=== PATIENT | female | born 1955 | race Caucasian/White ===

== ENCOUNTER 2022-03-29 18:40 | Inpatient (IN) | payer SELFPAY ==
[~2022-03-29 18:40] MED LIST: Iopamidol 300 61% 100 ML VIAL FS ONE
[2022-03-29] MEDS ORDERED: Lidocaine 1% MPF 2 ML VIAL ONE (18:46)
[2022-03-29] MEDS ORDERED: Nitroglycerin 50 MG/250 ML BOT 250 ML ONE (18:46)
[2022-03-29] MEDS ORDERED: Heparin 10,000 UNITS/ 10 ML VIAL ONE (18:46)
[2022-03-29] MEDS ORDERED: Lidocaine 1% (PF) 30 ML VIAL ONE (18:46)
[2022-03-29] MEDS ORDERED: Adenosine 6 MG/2 ML VIAL ONE (18:46)
[2022-03-29] MEDS ORDERED: Sodium Chloride 0.9% 1,000 ML ONE (18:47)
[2022-03-29] MEDS ORDERED: Verapamil 5 MG/2 ML VIAL ONE (18:47)
[2022-03-29] MEDS ORDERED: Ondansetron PF 4 MG/2 ML Vial ONE (19:09)
[2022-03-29] MEDS ORDERED: Fentanyl 100 MCG/2 ML VIAL ONE (19:13)
[2022-03-29] MEDS ORDERED: Midazolam HCl 2 mg/2 ml Vial ONE (19:13)
[2022-03-29] MEDS ORDERED: Bivalirudin 250 MG VIAL ONE (19:19)
[2022-03-29] MEDS ORDERED: TICAGRELOR 90 MG TABLET ONE (19:20)
[2022-03-29] MEDS ORDERED: Sodium Chloride 0.9% 50 ML ONE (19:22)
[2022-03-29] MEDS ORDERED: Atropine Sulfate 0.4 mg/1 ml Vial ONE (19:31)
[2022-03-29] MEDS ORDERED: Phenylephrine 40 MG/NS 250 ML 0 ML ONE (19:42)
[2022-03-29] MEDS ORDERED: Acetaminophen/Codeine 30-300mg Tablet PO PRN (20:09)
[2022-03-29] MEDS: Sodium Chloride 0.9% 1,000 ML IV SCH (20:45)
[2022-03-29 21:08] VITALS: BMI 33.1
[2022-03-29] MEDS: TICAGRELOR 90 MG TABLET PO SCH (21:57)
[2022-03-29] MEDS: Metoprolol Tartrate 25 MG TAB PO SCH (21:57)
[2022-03-29] MEDS: Atorvastatin Calcium 40 MG TAB PO SCH (21:57)
[2022-03-29 23:54] LABS: SARS-CoV-2 NAA Rapid Test Not Detected (NotDetected)
[2022-03-30] MEDS: Sodium Chloride 0.9% 1,000 ML IV SCH (02:58)
[2022-03-30 04:03] LABS: ALT (SGPT) 49 U/L (8-55); AST (SGOT) 107 U/L (5-34); Albumin 3.9 g/dL (3.4-4.8); Alkaline Phosphatase 85 U/L (40-110); Anion Gap 16 mmol/L (10-20); BUN (Urea Nitrogen) 9 mg/dL (9.8-20.1); Bilirubin, Total 0.6 mg/dL (0.2-1.2); Calc. Creatinine Clearance 87 mL/min (70-130); Calcium 9.2 mg/dL (7.8-10.44); Carbon Dioxide 20 mmol/L (23-31); Cardiac Risk 3.9 (Less than 4.5); Chloride 108 mmol/L (98-107); Cholesterol 201 mg/dl (< 200 Desired); Estimated GFR 86; Globulin 2.8 g/dL (2.4-3.5); Glucose 109 mg/dL (80-115); HDL Cholesterol 51 mg/dL (>60 Neg Risk); LDL Cholesterol, Calculated 126 mg/dL; Potassium 4.4 mmol/L (3.5-5.1); Protein, Total 6.7 g/dL (5.8-8.1); Sodium 140 mmol/L (136-145); Triglycerides 122 mg/dL (Less than 150)
[2022-03-30 04:18] LABS: #Monocytes 0.5 10x3/uL (0.0-1.1); #Neutrophils 6.9 10x3/uL (1.5-8.4); %Basophils 0.2 % (0.0-2.0); %Lymphocytes 16.5 % (18.0-47.0); %Monocytes 5.4 % (0.0-10.0); %Neutrophils 77.7 % (40.0-75.0); Hemoglobin 12.4 g/dL (12.0-15.5); Mean Corpuscular HGB CONC 34.5 g/dL (32.0-36.0); Mean Corpuscular Hemoglobin 31.2 pg (27.0-33.0); Mean Corpuscular Volume 90.2 fl (81.6-98.3); Mean Platelet Volume 11.8 fl (7.4-10.4); Platelet Count 162 10x3/uL (150-450); RBC Distribution Width 12.8 % (11.5-14.5); Red Blood Cell (RBC) Count 3.98 10x6/uL (3.90-5.03); White Blood Cell (WBC) Count 8.9 10x3/uL (3.5-10.5)
[2022-03-30] MEDS: Aspirin Chewable 81 MG TAB PO SCH (08:16)
[2022-03-30] MEDS: TICAGRELOR 90 MG TABLET PO SCH ×2 (08:17→21:23)
[2022-03-30] MEDS: Metoprolol Tartrate 25 MG TAB PO SCH ×2 (08:17→21:23)
[2022-03-30] MEDS: Lisinopril 2.5 MG TAB PO SCH (08:17)
[2022-03-30] MEDS: Atorvastatin Calcium 40 MG TAB PO SCH (21:22)
[2022-03-31] MEDS ORDERED: Clopidogrel Bisulfate 75 MG TAB PO SCH (09:00)
[2022-03-31] MEDS: Aspirin Chewable 81 MG TAB PO SCH (11:08)
[2022-03-31] MEDS: Lisinopril 2.5 MG TAB PO SCH (11:08)
[2022-03-31] MEDS: Metoprolol Tartrate 25 MG TAB PO SCH (11:09)
[2022-03-31 12:18] VITALS: BP 140/79; TEMP 98.1
== END 2022-03-31 12:00 | disposition home or self-care (01) | DRG 247 ==
LOC: CSHERS 18:40 → CSHICU 20:54 → CSHTELE 03-30 11:28
PROVIDERS: ADMIT Specialist; ATTEND Specialist
PROC: 027034Z Dilation of Coronary Artery, One Artery with Drug-eluting Intraluminal Device, Percutaneous Approach (ICD-10-PCS; principal; 2022-03-29)
PROC: 4A023N7 Measurement of Cardiac Sampling and Pressure, Left Heart, Percutaneous Approach (ICD-10-PCS; 2022-03-29)
PROC: B2111ZZ Fluoroscopy of Multiple Coronary Arteries using Low Osmolar Contrast (ICD-10-PCS; 2022-03-29)
PROC: B2151ZZ Fluoroscopy of Left Heart using Low Osmolar Contrast (ICD-10-PCS; 2022-03-29)
DX: I21.19 ST elevation (STEMI) myocardial infarction involving other coronary artery of inferior wall (principal); I10 Essential (primary) hypertension; Z98.890 Other specified postprocedural states; Z90.49 Acquired absence of other specified parts of digestive tract; Z79.890 Hormone replacement therapy; Z82.49 Family history of ischemic heart disease and other diseases of the circulatory system; Z82.3 Family history of stroke; Z20.822 Contact with and (suspected) exposure to COVID-19; I25.10 Atherosclerotic heart disease of native coronary artery without angina pectoris; Z90.711 Acquired absence of uterus with remaining cervical stump
CPT/HCPCS: 80053; 80061; 85025; 92941; 93005; 93010; 93306; 93458; 94760; 99152; 99153; C1726; C1769; C1876; C1887; C1894; C9606; J0153; J0461; J0583; J1644; J2001; J2250; J2405; J3010; J7050; Q9967; U0002